=== PATIENT | female | born 1960 | race Two or more races ===

== ENCOUNTER 2023-09-05 11:47 | Emergency (ER) | payer OTHER, BC ==
[~2023-09-05] VITALS: Ht 162.6 cm; Wt 59.9 kg
[2023-09-05] MEDS ORDERED: HYDROCHLOROTHIA25 MG PO (12:27)
[2023-09-05] MEDS ORDERED: TRAMADOL HCL E100 M1 PO (12:27)
[2023-09-05] MEDS ORDERED: HUMIRA40 MG/0.2 SQ (12:28)
[2023-09-05] MEDS ORDERED: BISOPROLOL-HCT1 EAC1 (12:29)
[2023-09-05] MEDS ORDERED: XELPROS2.5 ML OP (12:29)
[2023-09-05] MEDS ORDERED: RHOPRESSA2.5 ML OTIC (12:30)
[2023-09-05] MEDS ORDERED: CORTISPORIN EAR10 M1 OPHT (12:30)
[2023-09-05 13:29] LABS: HEMATOCRIT 40.5 % (36.0-45.00); HEMOGLOBIN 13.7 g/dL (12.0-15.00); MEAN CELL VOLUME 93.1 fL (80.00-100.00); MEAN CORPUSCULAR HEMOGLOBIN 31.5 pg (27.00-32.0); MEAN CORPUSCULAR HGB CONC 33.9 g/dl (32.0-36.0); PLATELET COUNT 260 K/uL (150-450); RED BLOOD COUNT 4.35 M/uL (4.00-6.00); RED CELL DISTRIBUTION WIDTH 13.3 % (11.5-14.5)
[2023-09-05 13:30] LABS: URINE APPEARANCE Clear; URINE BILIRRUBIN Negative (NEGATIVE); URINE BLOOD Negative; URINE COLOR Yellow; URINE GLUCOSE Negative (NEGATIVE); URINE LEUKOCYTE Trace; URINE NITRATE Negative; URINE PROTEIN Negative (NEGATIVE); URINE UROBILINOGEN 0.2 E.U./dl
[2023-09-05 13:34] LABS: URINE BACTERIA 391.6 uL (0.0-1933); URINE EPITHELIAL CELLS 8.8 uL (0.0-38.8); URINE RBC 3.4 uL (0.0-20.8); URINE WBC 12.3 uL (0.0-23.2)
[2023-09-05 13:51] LABS: CALCIUM 10.2 mg/dL (8.5-10.1); CREATININE SERUM 0.58 mg/dL (0.55-1.02); GFR 104.33; POTASSIUM 3.62 mEq/L (3.5-5.1)
[2023-09-05] MEDS ORDERED: LEVSIN/SL0.125 MG SL (19:07)
== END 2023-09-05 19:15 | disposition home or self-care (01) ==
LOC: ER 11:49
PROVIDERS: Emergency Medicine
DX: K52.89 Other specified noninfective gastroenteritis and colitis (principal); E11.9 Type 2 diabetes mellitus without complications; I10 Essential (primary) hypertension

== ENCOUNTER 2024-09-11 12:17 | Outpatient (CLI) | payer OTHER, BC ==
[~2024-09-11 12:17] MED LIST: BISOPROLOL-HCT1 EAC1; CORTISPORIN EAR10 M1 OPHT; HUMIRA40 MG/0.2 SQ; HYDROCHLOROTHIA25 MG PO; LEVSIN/SL0.125 MG SL; RHOPRESSA2.5 ML OTIC; TRAMADOL HCL E100 M1 PO; XELPROS2.5 ML OP
== END 2024-09-11 12:18 | disposition home or self-care (01) ==
LOC: LAB 12:17
PROVIDERS: ATTEND Orthopaedic Surgery
DX: E56.1 Deficiency of vitamin K (principal)

== ENCOUNTER → 2024-11-11 10:27 | Outpatient (CLI) | payer OTHER, BC ==
[2024-11-11 10:55] LABS: HEMOGLOBIN 13.7 g/dL (12.0-15.00); MEAN CELL VOLUME 93.9 fL (80.00-100.00); MEAN CORPUSCULAR HEMOGLOBIN 32.2 pg (27.00-32.0); MEAN CORPUSCULAR HGB CONC 34.3 g/dl (32.0-36.0); PLATELET COUNT 256 K/uL (150-450); RED BLOOD COUNT 4.26 M/uL (4.00-6.00); RED CELL DISTRIBUTION WIDTH 14.1 % (11.5-14.5)
[2024-11-11 11:09] LABS: URINE APPEARANCE Clear; URINE BILIRRUBIN Negative (NEGATIVE); URINE BLOOD Negative; URINE COLOR Yellow; URINE GLUCOSE Negative (NEGATIVE); URINE KETONE Negative (NEGATIVE); URINE LEUKOCYTE Trace; URINE NITRATE Negative; URINE PROTEIN Negative (NEGATIVE); URINE UROBILINOGEN 0.2 E.U./dl
[2024-11-11 11:13] LABS: URINE BACTERIA 29.3 uL (0.0-1933); URINE EPITHELIAL CELLS 5.3 uL (0.0-38.8); URINE RBC 24.5 uL (0.0-20.8); URINE WBC 2.5 uL (0.0-23.2)
[2024-11-11 11:31] LABS: INR 0.94; PARTIAL THROMBOPLASTIN TIME 25.1 SECONDS (22.0-34.0); PROTHROMBIN TIME 10.3 SECONDS (9.0-11.5)
[2024-11-11 11:41] LABS: COL EPI 79 SECONDS (82-175)
[2024-11-11 11:54] LABS: ALBUMIN 4.3 gm/dL (3.4-5.0); ALKALINE PHOSPHATASE 56 U/L (50-136); ALT/SGPT 32 U/L (12-78); AST/SGOT 20 U/L (15-37); BILIRUBIN TOTAL 0.83 mg/dL (0.3-1.2); BLOOD UREA NITROGEN 16 mg/dL (7-18); BUN CREA RATIO 29 (7.0-25.0); CALCIUM 9.7 mg/dL (8.5-10.1); CARBON DIOXIDE 35 mEq/L (21-32); CHLORIDE 107 mmol/L (98-107); CREATININE SERUM 0.56 mg/dL (0.55-1.02); GFR 108.31; GLOBULINA 3.4 G/DL (2.4-3.5); GLUCOSE FASTING 106 mg/dL (65-100); OSMOLALITY SERUM 272 MOSM/KG (275-295); POTASSIUM 3.88 mEq/L (3.5-5.1); SODIUM 135 mmol/L (136-145); TOTAL PROTEIN 7.7 gm/dL (6.4-8.2)
== END | disposition home or self-care (01) ==
LOC: LAB 10:27
PROVIDERS: ATTEND Orthopaedic Surgery
DX: D64.9 Anemia, unspecified (principal); E88.89 Other specified metabolic disorders; D68.8 Other specified coagulation defects; N39.0 Urinary tract infection, site not specified; Z22.322 Carrier or suspected carrier of Methicillin resistant Staphylococcus aureus; E11.9 Type 2 diabetes mellitus without complications; Z76.89 Persons encountering health services in other specified circumstances